=== PATIENT | female | born 1980 | race African-American/Black ===

== ENCOUNTER → 2019-08-25 | Outpatient (CLI) | payer OTHER ==
[~2019-08-25] MED LIST: ALPR0.25 PO
== END | disposition home or self-care (01) ==
LOC: RAD 13:20
PROVIDERS: ATTEND Nurse Practitioner Family
DX: R10.9 Unspecified abdominal pain (principal); M54.5 Low back pain; I87.8 Other specified disorders of veins; Z90.49 Acquired absence of other specified parts of digestive tract
CPT/HCPCS: 72110; 74021

== ENCOUNTER 2019-09-28 22:38 | Emergency (ER) | payer OTHER ==
[~2019-09-28] VITALS: Ht 162.6 cm; Wt 94.0 kg
--- NOTE | 2019-09-28 22:55 | NUR ---
Patient presents to ER c/o left side GIL x4 days. Patient states she has seen a doctor who tested for strep which was negative. She has also seen a dentist and they found no problems. She was prescribed abx and pain meds but the pain is continuing. She states the next step was for neurology however she can't take the pain right now and wants to find out the cause. Patient states the pain is intermittent and sharp. Denies trauma. Patient is in obvious intermittent pain. Respirations even and unlabored.
[2019-09-28] MEDS ORDERED: KETOROLAC 60 MG/2 ML ONE (23:25)
[2019-09-28 23:30] VITALS: BP 122/82
[2019-09-28] MEDS ORDERED: KETOROLAC 30 MG/1 ML IM ONE (23:30)
--- NOTE | 2019-09-28 23:47 | NUR ---
Discharge instructions given. All questions and concerns addressed. Patient ambulatory with a steady gait. Belongings with patient.
== END 2019-09-28 23:48 | disposition home or self-care (01) ==
LOC: ED 23:20
DX: G44.209 Tension-type headache, unspecified, not intractable (principal); Z90.49 Acquired absence of other specified parts of digestive tract
CPT/HCPCS: 20552; 96372; 99284; J1885; 99283